=== PATIENT | male | born 1985 | race Caucasian/White ===

== ENCOUNTER 2024-03-18 11:41 | Emergency (ER) | payer BC, SELFPAY ==
[2024-03-18 11:41] VITALS: BP 141/88; PULSE 65; RESP 16; TEMP 36.6; O2SAT 98
--- NOTE | 2024-03-18 11:53 | ED.WOUNDLAC ---
HPI - Wound/Laceration General Chief Complaint: Wound/Laceration Stated Complaint: Laceration right thumb Time Seen by Provider: 03/18/24 11:51 History of Present Illness HPI narrative: 38-year-old male presents to the emergency department for skin avulsion to his right thumb that occurred 45 minutes prior to arrival. Patient states he was using a mandolin to cut potatoes and cut his finger. He is unable to control the bleeding. He is not anticoagulated. Denies other injuries. Related Data Allergies Allergy/AdvReac Type Severity Reaction Status Date / Time amoxicillin Allergy Hives Verified 03/18/24 11:42 Review of Systems Review of Systems: All systems reviewed & are unremarkable except as noted in HPI and below Exam Narrative: GENERAL: Well-appearing, well-nourished, and in no acute distress. HEAD: Normocephalic, atraumatic. EYES: EOMI. ENT: Nares clear, no rhinorrhea or epistaxis. Mucous membranes moist. NECK: Supple. CHEST: Clear to auscultation. No respiratory distress. HEART: Regular rate and rhythm. No murmur heard. Normal peripheral pulses. EXTREMITIES: Normal range of motion. No edema. SKIN: Small skin avulsion to the distal aspect of the right thumb with mild bleeding. No deep structures or foreign bodies visualized. Patient has full active and passive range of motion of thumb. Cap refill less than 2. Sensation intact. NEURO: No focal deficits. Alert and oriented x3 Course Vital Signs Vital signs: Vital Signs Temperature 97.9 F 03/18/24 11:41 Pulse Rate 65 03/18/24 11:41 Respiratory Rate 16 03/18/24 11:41 Blood Pressure 141/88 H 03/18/24 11:41 Pulse Oximetry 98 03/18/24 11:41 Temperature 97.9 F 03/18/24 11:41 Pulse Rate 65 03/18/24 11:41 Respiratory Rate 16 03/18/24 11:41 Blood Pressure 141/88 H 03/18/24 11:41 Pulse Oximetry 98 03/18/24 11:41 MDM - Wound/Laceration MDM Narrative Medical decision making narrative: 38-year-old male presents emergency department for a skin avulsion to his right thumb that occurred 45 minutes prior to arrival using a mandoline. Vitals are stable. Exam is significant for some skin avulsion to the right thumb with no deep structures or foreign bodies visualized. He is neurovascularly intact. finger tourniquet applied and skin glue applied to the skin avulsion with successful hemostasis. Finger tourniquet removed and finger pinked up quickly. Tdap updated. Discussed wound care and strict ED return precautions. He is agreeable to plan verbalized understanding. Discharged in stable condition. Discharge Plan Discharge Clinical Impression: Avulsion of skin Patient Disposition: Home, Self-Care Condition: Stable Instructions: Antibiotic Form, Skin Avulsion (ED) Additional Instructions: You were evaluated in the emergency department for skin avulsion. We were able to stop the bleeding with a finger tourniquet and skin glue. Please keep the area clean and dry. Follow-up with her PCP. Return to the emergency department if you develop surrounding redness, drainage, fever or other concerning symptoms. Follow-up/Referrals: PHYSICIAN NOT ON STAFF,NONSTAFF [Non-Staff] - Calin Meier MD [Physician] - 1 Day
[2024-03-18] MEDS: TETANUS,DIPHTHERIA,AC PERTUSSIS ADULT (0.5 ML) BOOSTRIX IM (12:45)
== END 2024-03-18 12:56 | disposition home or self-care (01) ==
LOC: ANHED 12:22
PROVIDERS: Emergency Provider Physician Assistant
DX: S61.001A Unspecified open wound of right thumb without damage to nail, initial encounter (principal); Z23 Encounter for immunization; W27.4XXA Contact with kitchen utensil, initial encounter; Y93.G1 Activity, food preparation and clean up
CPT/HCPCS: 12001; 90471; 90715; 99282